=== PATIENT | female | born 1940 | race Hispanic/Latino ===

== ENCOUNTER 2020-03-31 16:29 | Inpatient (IN) | payer MEDICARE ==
[~2020-03-31] VITALS: Ht 142.2 cm; Wt 75.3 kg
--- OUTSIDE RECORDS SUMMARY | 2020-03-31 17:08 | XMS REPORT | Continuity of Care Document ---
Author Author [facility] Organization [facility] Address [address] [place] [address] Phone Unavailable Care Team Providers Care School Physical Therapist Name Role Phone Unavailable Unavailable Payers Payer Name Policy Type Policy Number Effective Date Expiration Date S ource Problems This patient has no known problems. Allergies, Adverse Reactions, Alerts This patient has no known allergies or adverse reactions. Medications This patient has no known medications. Procedures This patient has no known procedures. Results This patient has no known results.
[2020-03-31 17:38] LABS: HEMATOCRIT 37.4 % (34.2-44.1); HEMOGLOBIN 12.4 g/dL (12.0-16.0); LYMPHOCYTES # (AUTO) 0.5 (1.0-3.2); LYMPHOCYTES % 16.7 % (18.0-39.1); MEAN CORPUSCULAR HEMOGLOBIN 29.2 pg (28-32); MEAN CORPUSCULAR HGB CONC 33.2 g/dL (31-35); MEAN CORPUSCULAR VOLUME 88.2 fL (81-99); MONOCYTES # (AUTO) 0.3 (0.2-0.8); MONOCYTES % 8.3 % (4.4-11.3); NEUTROPHILS # (AUTO) 2.4 (2.1-6.9); NEUTROPHILS % 74.7 % (38.7-80.0); PLATELET COUNT 156 x10e3/uL (140-360); RED BLOOD COUNT 4.24 x10e6/uL (3.6-5.1)
[2020-03-31 17:57] LABS: ALANINE AMINOTRANSFERASE 22 IU/L (0-55); ALBUMIN 3.4 g/dL (3.5-5.0); ALBUMIN/GLOBULIN RATIO 0.7 (0.8-2.0); ALKALINE PHOSPHATASE 67 IU/L (40-150); ANION GAP 16.7 mmol/L (8-16); BLOOD UREA NITROGEN 12 mg/dL (7-26); BUN/CREATININE RATIO 14 (6-25); CALCIUM 9.2 mg/dL (8.4-10.2); CARBON DIOXIDE 23 mmol/L (22-29); CHLORIDE 100 mmol/L (98-107); CREATINE KINASE 39 IU/L (29-168); CREATININE, SERUM 0.87 mg/dL (0.57-1.11); EST GLOMERULAR FILTRATION RATE > 60 ML/MIN (60-); GLUCOSE 302 mg/dL (74-118); POTASSIUM 3.7 mmol/L (3.5-5.1); SODIUM 136 mmol/L (136-145)
[2020-03-31] MEDS ORDERED: AZITHROMYCIN 500MG/NS 250 ML 250 ML IV STA (18:21)
[2020-03-31] MEDS ORDERED: CEFTRIAXONE SOD 1 GM/NS 50 ML 50 ML IV ONE (18:30)
[2020-03-31 18:31] LABS: BILIRUBIN,URINE SMALL (NEGATIVE); CLARITY,URINE HAZY (CLEAR); COLOR,URINE YELLOW (YELLOW); KETONES,URINE TRACE (NEGATIVE); LEUKOCYTE ESTERASE ,URINE NEGATIVE (NEGATIVE); NITRITE,URINE NEGATIVE (NEGATIVE); PROTEIN,URINE DIPSTICK >=300 (NEGATIVE)
[2020-03-31] MEDS ORDERED: DEXAMETHASONE SOD PHOS INJ 4 MG/ML VIAL ONE ×2 (18:33→18:45)
[2020-03-31 18:35] LABS: AMORPHOUS SEDIMENT,URINE FEW (FEW); BACTERIA,URINE MODERATE /HPF; EPITHELIAL CELLS,URINE FEW /LPF; MUCUS,URINE FEW (RARE); RBC,URINE 0-5 /HPF (0-5); WBC,URINE (MAN) 0-5 /HPF (0-5)
--- NOTE | 2020-03-31 18:35 | Diagnostic Imaging Report ---
EXAMINATION: CHEST SINGLE (PORTABLE) INDICATION: Shortness of breath. COMPARISON: None FINDINGS: TUBES and LINES: None. LUNGS: There is prominent interstitial lung markings and hazy bibasilar opacities. PLEURA: Small bilateral pleural effusion. No pneumothorax. HEART AND MEDIASTINUM: The heart appears slightly enlarged. The mediastinal contours otherwise within normal limits with atherosclerotic calcification of the thoracic aorta. BONES AND SOFT TISSUES: No acute osseous lesion. Soft tissues are unremarkable. UPPER ABDOMEN: No free air under the diaphragm. IMPRESSION: 1. Cardiomegaly with interstitial pulmonary edema. 2. Hazy opacification of bilateral lung bases may represent atelectasis and/or developing pneumonia in the proper clinical setting. Signed by: Marni Garcia MD on 03/31/2020 6:32 PM
[2020-03-31] MEDS: DEXAMETHASONE SOD PHOS INJ 4 MG/ML VIAL IV SCH (18:41)
--- OUTSIDE RECORDS SUMMARY | 2020-03-31 18:50 | XMS REPORT | Continuity of Care Document ---
Author Author [facility] t Organization [facility] Address [address] [place] [phone] Phone Unavailable Care Team Providers Care Papier Mache' Molder Name Role Phone Jamir MILLAN Unavailable Payers Payer Name Policy Type Policy Number Effective Date Expiration Date S ource Problems This patient has no known problems. Allergies, Adverse Reactions, Alerts This patient has no known allergies or adverse reactions. Medications This patient has no known medications. Procedures This patient has no known procedures. Results Test Description Test Time Test Comments Results Result Comments Source CHEST SINGLE (PORTABLE) 2020-03-31 18:30:00 [facility] [address] [address] Patient Name: EDDIE IVORY MR #: [id number] : 1940 Age/Sex: 79/F Req #: [id number] Adm Physician: Ordered by: CARLOS MILLAN DO Report #: [id number] Location: ER Room/Bed: Procedure: [id number] DX/CHEST SINGLE (PORTABLE) Exam Date: Exam Time: REPORT STATUS: Signed EXAMINATION: CHEST SINGLE (PORTABLE) INDICATION: Shortness of breath. COMPARISON: None FINDINGS: TUBES and LINES: None. LUNGS: There is prominent interstitial lung markings and hazy bibasilar opacities. PLEURA: Small bilateral pleural effusion. No pneumothorax. HEART AND MEDIASTINUM: The heart appears slightly enlarged. The mediastinal contours otherwise within normal limits with atherosclerotic calcification of the thoracic aorta. BONES AND SOFT TISSUES: No acute osseous lesion. Soft tissues are unremarkable. UPPER ABDOMEN: No free air under the diaphragm. IMPRESSION: 1. Cardiomegaly with interstitial pulmonary edema. 2. Hazy opacification of bilateral lung bases may represent atelectasis and/or developing pneumonia in the proper clinical setting. Signed by: Sivakumar Lay MD on 03/31/2020 6:32 PM Dictated By: SIVAKUMAR LAY MD 31 Transcribed By: MIGUEL on 03/31/201831 COPY TO: CARLOS MILLAN DO
--- NOTE | 2020-03-31 19:05 | NUR ---
Nursing report received from Paula SOMMERS.
--- NOTE | 2020-03-31 19:31 | NUR ---
Assisted pt to BSC, slightly SOB with exertion, sats remained above 90% on RA.
--- NOTE | 2020-03-31 19:32 | Emergency Department Note ---
History of Present Illnes History of Present Illness Chief Complaint: COVID PUI History of Present Illness This is a 79 year old female arrives to the ED with complaints of cough shortness of breath, known to be covid + . Historian: Patient Arrival Mode: Car Onset (how long ago): day(s) Progression: worsening Past Medical/Family History Physician Review I have reviewed the patient's past medical and family history. Any updates have been documented here. Past Medical History Recent Fever: No Clinical Suspicion of Infectio: No New/Unexplained Change in Ment: No Past Medical History: Hypertension, Diabetes Past Surgical History: Hysterectomy Social History Physically hurt or threatened: No Other Any Pre-Existing Lines (PICC,: No Review of Systems Review of Systems Constitutional: Reports as per HPI, Reports chills, Reports fever EENTM: Reports no symptoms Cardiovascular: Reports no symptoms Respiratory: Reports as per HPI Gastrointestinal: Reports no symptoms Genitourinary: Reports no symptoms Musculoskeletal: Reports no symptoms Integumentary: Reports no symptoms Neurological: Reports no symptoms Psychological: Reports no symptoms Endocrine: Reports no symptoms Hematological/Lymphatic: Reports no symptoms Physical Exam Related Data Allergies: Uncoded Allergies: STATINS (Allergy, Unknown, 03/31/20) Triage Vital Signs Vital Signs Date Time Temp Pulse Resp B/P (MAP) Pulse Ox O2 Delivery O2 Flow Rate FiO2 03/31/20 16:34 98.5 87 28 111/54 92 Room Air Vital signs reviewed: Yes Physical Exam CONSTITUTIONAL Constitutional: Present well-developed, Present well-nourished, Present ill appearing HENT HENT: Present normocephalic, Present atraumatic, Present oropharynx clear/moist, Present nose normal HENT L/R: Present left ext ear normal, Present right ext ear normal EYES Eyes: Reports PERRL, Reports conjunctivae normal NECK Neck: Present ROM normal PULMONARY Pulmonary: Present effort normal, Present breath sounds normal, Present respi ratory distress CARDIOVASCULAR Cardiovascular: Present regular rhythm, Present heart sounds normal, Present capillary refill normal, Present normal rate GASTROINTESTINAL Abdominal: Present soft, Present nontender, Present bowel sounds normal GENITOURINARY Genitourinary: Present exam deferred SKIN Skin: Present warm, Present dry MUSCULOSKELETAL Musculoskeletal: Present ROM normal NEUROLOGICAL Neurological: Present alert, Present oriented x 3, Present no gross motor or sensory deficits PSYCHOLOGICAL Psychological: Present mood/affect normal, Present judgement normal Results Laboratory Result Diagram: 03/31/20 1705 03/31/20 1705 Laboratory Laboratory Tests Test 03/31/20 18:43 03/31/20 18:20 03/31/20 17:05 Urine Color Yellow (YELLOW) Urine Clarity Hazy (CLEAR) Urine pH 6 (5 - 7) Urine Specific [place] 1.025 (1.010-1.025) Urine Protein >=300 (NEGATIVE) Urine Glucose (UA) 2+ (NEGATIVE) Urine Ketones Trace (NEGATIVE) Urine Blood Trace (NEGATIVE) Urine Nitrite Negative (NEGATIVE) Urine Bilirubin Small (NEGATIVE) Urine Urobilinogen 2.0 mg/dL (0.2 - 1) Urine Leukocyte Esterase Negative (NEGATIVE) Urine RBC 0-5 /HPF (0-5) Urine WBC 0-5 /HPF (0-5) Urine Epithelial Cells Few /LPF (NONE) Urine Amorphous Sediment Few (FEW) Urine Bacteria Moderate /HPF (NONE) Urine Mucus Few (RARE) White Blood Count 3.24 x10e3/uL (4.8-10.8) Red Blood Count 4.24 x10e6/uL (3.6-5.1) Hemoglobin 12.4 g/dL (12.0-16.0) Hematocrit 37.4 % (34.2-44.1) Mean Corpuscular Volume 88.2 fL (81-99) Mean Corpuscular Hemoglobin 29.2 pg (28-32) Mean Corpuscular Hemoglobin Concent 33.2 g/dL (31-35) Red Cell Distribution Width 13.0 % (11.7-14.4) Platelet Count 156 x10e3/uL (140-360) Neutrophils (%) (Auto) 74.7 % (38.7-80.0) Lymphocytes (%) (Auto) 16.7 % (18.0-39.1) Monocytes (%) (Auto) 8.3 % (4.4-11.3) Eosinophils (%) (Auto) 0.0 % (0.0-6.0) Basophils (%) (Auto) 0.0 % (0.0-1.0) Neutrophils # (Auto) 2.4 (2.1-6.9) Lymphocytes # (Auto) 0.5 (1.0-3.2) Monocytes # (Auto) 0.3 (0.2-0.8) Eosinophils # (Auto) 0.0 (0.0-0.4) Basophils # (Auto) 0.0 (0.0-0.1) Absolute Immature Granulocyte (auto 0.01 x10e3/uL (0-0.1) Sodium Level 136 mmol/L (136-145) Potassium Level 3.7 mmol/L (3.5-5.1) Chloride Level 100 mmol/L (98-107) Carbon Dioxide Level 23 mmol/L (22-29) Anion Gap 16.7 mmol/L (8-16) Blood Urea Nitrogen 12 mg/dL (7-26) Creatinine 0.87 mg/dL (0.57-1.11) Estimat Glomerular Filtration Rate > 60 ML/MIN (60-) BUN/Creatinine Ratio 14 (6-25) Glucose Level 302 mg/dL (74-118) Lactic Acid Level 2.7 mmol/L (0.5-2.0) Calcium Level 9.2 mg/dL (8.4-10.2) Total Bilirubin 0.6 mg/dL (0.2-1.2) Aspartate Amino Transf (AST/SGOT) 43 IU/L (5-34) Alanine Aminotransferase (ALT/SGPT) 22 IU/L (0-55) Alkaline Phosphatase 67 IU/L (40-150) Creatine Kinase 39 IU/L (29-168) Creatine Kinase MB 1.70 ng/mL (0-5.0) Troponin I 0.144 ng/mL (0-0.300) Total Protein 8.0 g/dL (6.5-8.1) Albumin 3.4 g/dL (3.5-5.0) Globulin 4.6 g/dL (2.3-3.5) Albumin/Globulin Ratio 0.7 (0.8-2.0) Lab results reviewed: Yes Imaging Imaging results reviewed: Yes Imaging Comments IMPRESSION: 1. Cardiomegaly with interstitial pulmonary edema. 2. Hazy opacification of bilateral lung bases may represent atelectasis and/or developing pneumonia in the proper clinical setting. Assessment & Plan Medical Decision Making MDM 79-year-old female arrived to the ED acute respiratory distress, noted to be covid + Pt required 2; supplemental O2. Assessment & Plan Final Impression: (1) COVID-19 (2) Acute respiratory distress Depart Disposition: ADMITTED Last Vital Signs Date Time Temp Pulse Resp B/P (MAP) Pulse Ox O2 Delivery O2 Flow Rate FiO2 03/31/20 18:42 93 20 109/69 96 Room Air 03/31/20 16:34 98.5 Medications in the ED Azithromycin 250 ml @ 200 mls/hr NOW STAT IV Last administered on 03/31/20at 18:35; Admin Dose 200 MLS/HR; Start 03/31/20 at 18:21; Stop 03/31/20 at 19:35 CARLOS MILLAN DO Mar 31, 2020 19:32
--- NOTE | 2020-03-31 20:35 | NUR ---
H&P cc: sob HPI: 79yoF, developed sob, suspected COVID infection; ordered; started on steroids and antibiotics. Pt has been SOB for >1 week, with intermittent diarrhea. PMH: PAF, Obesity, DM2 PSHx: unknown Allergies; see emr Fh/SH; no illicits Meds; see MAR ROS; unreliable v/s; revd PE tired appearing; 2L/minNC O2 anicteirc ns1s2 reduced bs soft nt nd no e/t skin dry flat affect lab/meds revd A/P: Multifocal PNA- IV abx; Acute resp failure- O2; decadron/vitC/zinc; check COVID status Obesity- hab1c/lipids BMI 37.2- as above DM2- hab1c Diarrhea- f/u; monitor Prop: lovenox dispo: f/u COVID testing Omar Maldonado MD, PhD.
[2020-03-31] MEDS ORDERED: ZOLPIDEM TARTRATE 5 MG TAB PO PRN (20:45)
[2020-03-31] MEDS ORDERED: ACETAMINOPHEN 325 MG TAB PO PRN (20:45)
[2020-03-31] MEDS ORDERED: ONDANSETRON HCL INJ 2MG/ML 2ML 2 MG/ML VIAL IV PRN (20:45)
[2020-03-31] MEDS ORDERED: DOCUSATE SODIUM 100 MG CAP PO PRN (20:45)
--- NOTE | 2020-03-31 21:06 | NUR ---
Nursing report given to Bridgette SOMMERS. Repeat Lactic Acid currently being drawn before sending pt to floor, pt will go to room 179
[2020-03-31 21:21] LABS: CHOL/HDL RATIO 4.5 (3.0-3.6)
--- NOTE | 2020-03-31 21:34 | NUR ---
RECEIVED PT BY WHEELCHAIR TO ROOM 175. PT IS AAOX3, RR EVEN AND NON-LABORED, ON ROOM AIR. SOB WITH EXERTION TO HOSPITAL BED. ORIENTED PT TO HOSPITAL ROOM, CALL LIGHT, PHONE, BED CONTROLS, LIGHTS AND HOSPITAL POLICY. LEFT PT LAYING SEMI FOWLERS IN BED, BED IN LOW LOCKED POSITION, SIDE RAILS UPX2, CALL LIGHT AND PHONE WITHIN REACH.
[2020-03-31] MEDS ORDERED: METOPROLOL SUC100 MG PO (21:45)
[2020-03-31] MEDS ORDERED: METFORMIN HCL500 MG PO (21:45)
[2020-03-31] MEDS ORDERED: METOPROLOL SUC200 MG PO (21:45)
[2020-03-31] MEDS ORDERED: NITROGLYCERIN0.4 MG SL (21:45)
[2020-03-31] MEDS ORDERED: SIMVASTATIN20 MG PO (21:45)
[2020-03-31] MEDS ORDERED: FLUTICASONE PRO16 GM (21:45)
[2020-03-31] MEDS ORDERED: CETIRIZINE HCL10 MG PO (21:45)
[2020-03-31] MEDS ORDERED: PIOGLITAZONE HC30 MG PO (21:45)
[2020-03-31] MEDS ORDERED: LISINOPRIL5 MG PO (21:45)
[2020-03-31] MEDS ORDERED: DEXTROSE 50% SYRINGE 50 ML IV PRN (22:15)
[2020-03-31] MEDS: ENOXAPARIN SOD INJ 40 MG/0.4 ML SYR SC SCH (22:30)
[2020-03-31 23:00] VITALS: BP 123/77
[2020-04-01] VITALS (9 sets, daily range): BP systolic 112–137; BP diastolic 73–87
[2020-04-01 06:12] LABS: HEMATOCRIT 35.4 % (34.2-44.1); HEMOGLOBIN 12.7 g/dL (12.0-16.0); LYMPHOCYTES # (AUTO) 1.1 (1.0-3.2); LYMPHOCYTES % 34.1 % (18.0-39.1); MEAN CORPUSCULAR HEMOGLOBIN 33.3 pg (28-32); MEAN CORPUSCULAR HGB CONC 35.9 g/dL (31-35); MEAN CORPUSCULAR VOLUME 92.9 fL (81-99); MONOCYTES # (AUTO) 0.1 (0.2-0.8); MONOCYTES % 3.4 % (4.4-11.3); NEUTROPHILS % 61.6 % (38.7-80.0); PLATELET COUNT 184 x10e3/uL (140-360); RED BLOOD COUNT 3.81 x10e6/uL (3.6-5.1); RED CELL DISTRIBUTION WIDTH 14.8 % (11.7-14.4)
[2020-04-01 06:24] LABS: ALANINE AMINOTRANSFERASE 20 IU/L (0-55); ALBUMIN 3.4 g/dL (3.5-5.0); ALBUMIN/GLOBULIN RATIO 0.7 (0.8-2.0); ALKALINE PHOSPHATASE 68 IU/L (40-150); ANION GAP 16.8 mmol/L (8-16); BLOOD UREA NITROGEN 12 mg/dL (7-26); BUN/CREATININE RATIO 15 (6-25); CALCIUM 9.4 mg/dL (8.4-10.2); CARBON DIOXIDE 21 mmol/L (22-29); CHLORIDE 103 mmol/L (98-107); EST GLOMERULAR FILTRATION RATE > 60 ML/MIN (60-); GLUCOSE 358 mg/dL (74-118); POTASSIUM 3.8 mmol/L (3.5-5.1); SODIUM 137 mmol/L (136-145)
[2020-04-01] MEDS: FAMOTIDINE 20 MG TAB PO SCH ×2 (08:31→16:27)
[2020-04-01] MEDS: ASCORBIC ACID 500 MG TAB PO SCH ×2 (08:31→16:27)
[2020-04-01] MEDS: INSULIN REGULAR, HUMAN 100 UNIT/1 ML 3ML VIAL SQ SCH ×4 (08:31→21:11)
[2020-04-01] MEDS: ZINC SULFATE 220 MG CAP PO SCH (08:31)
--- NOTE | 2020-04-01 10:15 | NUR ---
IM- progress note O/N see below ROS; unreliable v/s; revd PE tired appearing; 2L/minNC O2 anicteirc ns1s2 reduced bs soft nt nd no e/t skin dry flat affect lab/meds revd A/P: Multifocal PNA- IV abx; Acute resp failure- O2; decadron/vitC/zinc; check COVID status Obesity- hab1c/lipids BMI 37.2- as above DM2- hab1c Diarrhea- f/u; monitor Prop: lovenox dispo: f/u COVID testing 8-3 cont care; f/u testing results; PAF- resume BB. Hba1c/LDL 7.5/50 Omar Maldonado MD, PhD.
[2020-04-01 10:35] LABS: LYMPHOCYTES % (MANUAL) 23 % (19-48); MONOCYTES % (MANUAL) 2 % (3.4-9.0); NEUTROPHILS % (MANUAL) 75 % (40-74)
[2020-04-01] MEDS: METOPROLOL SUCCINATE 50 MG TAB XL PO SCH (10:35)
[2020-04-01 10:37] LABS: ANISOCYTOSIS SLIGHT; PLATELET ESTIMATE ADEQUATE; PLATELET MORPHOLOGY COMMENT NORMAL; RBC MORPHOLOGY COMMENT NORMAL
[2020-04-01] MEDS ORDERED: CEFTRIAXONE SOD 1 GM/NS 50 ML 50 ML IV SCH (15:00)
[2020-04-01] MEDS ORDERED: SODIUM CHLORIDE 0.9% 250ML 250 ML ONE (15:24)
--- NOTE | 2020-04-01 15:34 | Consultation ---
DATE OF CONSULTATION: Pulmonary Critical Care Consultation CHIEF COMPLAINT: Cough and dyspnea. HISTORY OF PRESENT ILLNESS: The patient is a 79-year-old woman. She has a history of some cough for several weeks. She also notes some shortness of breath. She went to see her primary doctor, Dr. Sofia, yesterday. She had an EKG and cardiac evaluation that apparently was negative. She was subsequently sent to an ER and also had no problems. The next day, she returned to our ER. She had a chest x-ray that showed interstitial pulmonary edema and some basilar opacities. She was admitted for possible COVID. PAST MEDICAL HISTORY: 1. Paroxysmal atrial fibrillation. 2. Diabetes. PAST SURGICAL HISTORY: Noncontributory. SOCIAL HISTORY: The patient has never been a smoker. She is not a drinker. ALLERGIES: SHE HAS NO KNOWN DRUG ALLERGIES. FAMILY HISTORY: Family history is noncontributory. REVIEW OF SYSTEMS: She denies fevers. She has no headache. She has no neck pain. She does have some dyspnea. She also reports cough. She has no chest pain. She has no nausea or vomiting. She has no leg edema. She has no focal neurological complaints. PHYSICAL EXAMINATION: VITAL SIGNS: The patient is afebrile. The blood pressure is 127/77, saturation is 92%, and the pulse is 99. HEENT: Shows no facial swelling or erythema. The oropharynx is normal. LYMPHATIC: Shows no submandibular, cervical, or supraclavicular adenopathy. CARDIAC: Reveals regular rate and rhythm with a normal S1 and S2. LUNGS: Auscultation of lungs are clear breath sounds bilaterally. There is no wheezing. ABDOMEN: Soft and nontender. There is no rebound or guarding. EXTREMITIES: Shows no leg edema or calf tenderness. There is no cyanosis or clubbing. SKIN: Shows no rashes. NEUROLOGICAL: Shows no focal abnormalities. LABORATORY DATA: White blood cell count is 3.2 and hemoglobin 12.7. The platelet count is 184. The BUN to creatinine ratio is normal. The other electrolytes are significant for a carbon dioxide of 21. The albumin is 3.4. COVID-19 test is positive. IMPRESSION: 1. Viral pneumonia and COVID-19 infection. 2. Atrial fibrillation. 3. Vague history of prior heart problems. 4. Diabetes. PLAN: 1. Continue Zithromax and Rocephin. 2. Continue Decadron. 3. Lovenox. 4. Echocardiogram and Cardiology evaluation. MD OWEN Paulino/DENISA /[id number]
[2020-04-01] MEDS ORDERED: AZITHROMYCIN 500MG/NS 250 ML 250 ML IV SCH (16:00)
--- NOTE | 2020-04-01 16:06 | NUR ---
PT screen completed. Patient is able to perform functional mobility with out assistance. Skilled PT services not indicated at this time.Thank you Addendum: 04/01/20 at 1607 by Jose houston PT Amended: Links added.
[2020-04-01] MEDS: ENOXAPARIN SOD INJ 40 MG/0.4 ML SYR SC SCH (16:27)
--- NOTE | 2020-04-01 16:27 | NUR ---
The patient is a 79-year-old woman. She has a history of some cough for several weeks. She also notes some shortness of breath. She went to see her primary doctor, Dr. Sofia, yesterday. She had an EKG and cardiac evaluation that apparently was negative. She was subsequently sent to an ER and also had no problems. The next day, she returned to our ER. She had a chest x-ray that showed interstitial pulmonary edema and some basilar opacities. PAST MEDICAL HISTORY: 1. Paroxysmal atrial fibrillation. 2. Diabetes. PAST SURGICAL HISTORY: Noncontributory. SOCIAL HISTORY: The patient has never been a smoker. She is not a drinker. ALLERGIES: SHE HAS NO KNOWN DRUG ALLERGIES. FAMILY HISTORY: Family history is noncontributory. REVIEW OF SYSTEMS: She denies fevers. She has no headache. She has no neck pain. She does have some dyspnea. She also reports cough. She has no chest pain. She has no nausea or vomiting. She has no leg edema. She has no focal neurological complaints. [id number]
--- NOTE | 2020-04-01 23:55 | Consultation ---
DATE OF CONSULTATION: REASON FOR CONSULTATION: Pneumonia. HISTORY OF PRESENT ILLNESS: This patient is a very pleasant 79-year-old female, who has been sick for 3 days with fever and sore throat and she started to get short of breath for the last couple of days. She went to see a physician, Dr. Sofia, who has sent her here. Admits that she had a positive stress test, being admitted and the patient was currently complaining of shortness of breath when she walks, but when she is sitting up, she is doing really good and when she rests she is doing good. PAST MEDICAL HISTORY: Otherwise atrial fibrillation, diabetes mellitus. PAST SURGICAL HISTORY: She denies. ALLERGIES: NKA. SOCIAL HISTORY: There is no smoking, drug abuse, or alcohol abuse. FAMILY HISTORY: Otherwise unremarkable. PHYSICAL EXAMINATION: GENERAL: She is currently alert, oriented, does not seem to be in acute distress. VITAL SIGNS: Stable, currently afebrile. HEENT: She is not icteric. NECK: Supple. CHEST: A few crackles at the bases. HEART: S1, S2. No murmur. ABDOMEN: Soft. EXTREMITIES: No edema. SKIN: No rash. IMPRESSION: Coronavirus disease-19 pneumonia, concerned about superimposed bacterial pneumonia. We will put her on Rocephin 1 g daily for five days, azithromycin 500 mg daily for 3 days. We will put the patient on oxygen 2 L and observe her clinically, Lovenox 0.5 mg/kg q.12 hours, Decadron 6 mg daily. Continue all home medication. We will follow. MD LEONORA Duncan/DENISA /[id number]
[2020-04-02] VITALS: BP 127/75
[2020-04-02 04:00] VITALS: BP 122/71
[2020-04-02 08:51] VITALS: BP 137/81
[2020-04-02] MEDS: FAMOTIDINE 20 MG TAB PO SCH (08:58)
[2020-04-02] MEDS: DEXAMETHASONE SOD PHOS INJ 4 MG/ML VIAL IV SCH (09:09)
[2020-04-02] MEDS: ZINC SULFATE 220 MG CAP PO SCH (09:10)
[2020-04-02] MEDS: ASCORBIC ACID 500 MG TAB PO SCH (09:10)
[2020-04-02] MEDS: METOPROLOL SUCCINATE 50 MG TAB XL PO SCH (09:10)
[2020-04-02] MEDS: INSULIN REGULAR, HUMAN 100 UNIT/1 ML 3ML VIAL SQ SCH ×2 (09:12→11:49)
[2020-04-02 10:08] VITALS: BP 137/81
[2020-04-02] MEDS ORDERED: ZINC SULFATE220 M1 PO (11:04)
[2020-04-02] MEDS ORDERED: ASCORBIC ACID500 MG PO (11:04)
[2020-04-02] MEDS ORDERED: PREDNISONE20 MG PO (11:04)
[2020-04-02 12:19] VITALS: BP 120/84
--- NOTE | 2020-04-02 12:20 | NUR ---
Received order for home oxygen. ADAN called and spoke with pt's Marisol Mcnulty regarding home oxygen. He is agreeable to use [facility]. Signed choice letter placed in chart. IMM letter discussed. Mr Mcnulty verbalized understanding. Signed copy placed in chart. Copy given to MATTHIEU Gaona to give to pt. Oxygen referral faxed to [facility] at [phone] / . Will deliver portable once cleared by [facility].
--- NOTE | 2020-04-02 12:23 | NUR ---
D/C summary Principal dx: Multifocal PNA- IV abx; Acute resp failure- O2; decadron/vitC/zinc; check COVID status Obesity- hab1c/lipids BMI 37.2- as above Secondary Dx: DM2- hab1c Diarrhea- f/u; monitor Prop: lovenox dispo: f/u COVID testing 8-3 cont care; f/u testing results; PAF- resume BB. Hba1c/LDL 7.5/50 d/c home on Home O2 stable d/c>35mins f/u pcp 2 days Omar Maldonado MD, PhD.
[2020-04-02] MEDS ORDERED: ONDANSETRON HCL 4 MG ORAL DISINTEGRATING TAB PO PRN (13:00)
--- NOTE | 2020-04-02 13:54 | NUR ---
Per Julio César with [facility] to give portable concentrator to pt. Portable concentrator given to MATTHIEU Gaona to give to pt.
--- NOTE | 2020-04-02 14:42 | NUR ---
home [id number] for patient. patient okay for d/c. updated on discharge instructions. 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 waiting for at this time. rachel.
--- NOTE | 2020-04-02 15:10 | NUR ---
PATIENT DISCHARGED. OXYGEN CONCENTRATOR EXPLAINED TO . DENIED ANY QUESTIONS. PATIENT WHEELED OFF UNIT IN STABLE CONDITION ON 2L
--- NOTE | 2020-04-02 15:13 | Progress Note ---
DATE: SUBJECTIVE: The patient is feeling better. She is saturating 100%. PHYSICAL EXAMINATION: VITAL SIGNS: The blood pressure is 120/84, pulse is 81. HEENT: No facial swelling or erythema. CARDIAC: Regular rate and rhythm with normal S1, S2. LUNGS: Auscultation of lungs reveals crackles at the bases. There is no wheezing. ABDOMEN: Soft, nontender. There is no rebound or guarding. LABORATORY DATA: White blood cell count is 3.2 and hemoglobin 12.7. The platelet count is 184. The BUN to creatinine ratio is normal. The other electrolytes are within normal limits and the albumin is 3.4. IMPRESSION: 1. Viral pneumonia and coronavirus disease-19 infection. 2. Atrial fibrillation. 3. Diabetes. PLAN: 1. Probable discharge home. 2. Home oxygen evaluation. 3. The patient will need low-dose Eliquis or high-dose aspirin as an outpatient. 4. Complete Decadron and antibiotics as an outpatient. Dion Lemos MD [facility]/DENISA /[id number]
--- NOTE | 2020-04-02 19:09 | Progress Note ---
DATE: SUBJECTIVE: Ms. Mcnulty is doing well. No new complaint. O2 sats 100%. OBJECTIVE: HEENT: She is not icteric. NECK: Supple. CHEST: Clear. HEART: S1, S2. No murmur. ABDOMEN: Soft. Bowel sounds present. EXTREMITIES: No edema. SKIN: No rash. IMPRESSION: Coronavirus disease-19, atrial fibrillation, and diabetes. Stable from an Infectious Disease point of view, can be discharged home with Eliquis 2.5 daily for six days or aspirin. The patient not infectious 10 days since the onset. No need to repeat PCR. MD LEONORA Duncan/DENISA /[id number]
== END 2020-04-02 15:07 | disposition home or self-care (01) | DRG 177 ==
LOC: ER 17:06 → ERHOLD 18:25 → IMCU 21:11
PROVIDERS: ADMIT Internal Medicine; ATTEND Internal Medicine
PROC: 8E0ZXY6 Isolation (ICD-10-PCS; principal; 2020-03-31)
DX: U07.1 COVID-19 (principal); J12.9 Viral pneumonia, unspecified; J96.00 Acute respiratory failure, unspecified whether with hypoxia or hypercapnia; J15.9 Unspecified bacterial pneumonia; I48.0 Paroxysmal atrial fibrillation; Z79.01 Long term (current) use of anticoagulants; Z68.37 Body mass index [BMI] 37.0-37.9, adult; R19.7 Diarrhea, unspecified; E66.9 Obesity, unspecified
CPT/HCPCS: 36415; 71045; 80053; 80061; 81001; 82550; 82553; 82948; 83036; 83605; 84484; 85025; 87040; 93005; 93306; 97139; 99285; J0456; J0696; J1100; J1650; J7050; U0002